=== PATIENT | female | born 1960 ===

== ENCOUNTER 2024-08-29 09:38 | Day surgery (SDC) | payer BC ==
[2024-08-29] MEDS ORDERED: Dexamethasone 4 MG/ML SDV IV ONE (09:39)
[2024-08-29] MEDS ORDERED: Midazolam 1 MG/ML 2 ML SDV IV ONE (09:39)
[2024-08-29] MEDS ORDERED: Sodium Chloride 0.9% 10 ML Syringe IV ONE (09:39)
[2024-08-29] MEDS ORDERED: Acetaminophen/Codeine 300-30 MG Tab PO PRN (09:45)
[2024-08-29] MEDS ORDERED: Ondansetron 4 MG/2 ML SDV IVPUSH PRN (09:45)
[2024-08-29] MEDS ORDERED: Acetaminophen 325 MG Tab PO PRN (09:45)
[2024-08-29] MEDS: Proparacaine 0.5% Ophth Soln 15 ML Bottle EYELF ONE ×2 (10:08→10:38)
[2024-08-29] MEDS: Moxifloxacin 0.5% Ophth Soln 3 ML Bottle EYELF ONE (10:09)
[2024-08-29] MEDS: Povidone-Iodine 5% Sterile Ophth Soln 30 ML Bottle EYELF ONE ×2 (10:09→10:38)
[2024-08-29] MEDS: Tropicamide 1% Ophth Soln 15 ML Bottle EYELF ONE (10:10)
[2024-08-29] MEDS: Phenylephrine 10% Ophth Soln 5 ML Bot EYELF ONE (10:11)
[2024-08-29] MEDS: Timolol Maleate 0.5% Ophth Soln 5 ML Bottle EYELF ONE (10:12)
[2024-08-29] MEDS: Cataract Ophth Solution EYELF ONE (10:12)
[2024-08-29] MEDS: Sodium Chloride 0.9% 10 ML Syringe FLUSH PRN (10:15)
[2024-08-29] MEDS: Dexamethasone/Neomycin/Polymyxin B Ophth Oint 3.5 GM Tube EYELF ONE (10:38)
[2024-08-29] MEDS: Diclofenac Sodium 0.1% Ophth Soln 5 ML Bottle EYELF ONE (10:38)
[2024-08-29] MEDS: Apraclonidine 0.5% Ophth Soln 5 ML Bot EYELF ONE (10:38)
[2024-08-29] MEDS: Lidocaine 1% 30 ML SDV ONE (10:41)
[2024-08-29] MEDS: VANCOmycin 500 MG SDV EYELF ONE (10:41)
== END 2024-08-29 11:23 | disposition home or self-care (01) ==
LOC: DL.SDS 09:38
PROVIDERS: ATTEND Ophthalmology
DX: H25.812 Combined forms of age-related cataract, left eye (principal); Z87.891 Personal history of nicotine dependence
CPT/HCPCS: 66984; A9270; J1100; J2250; J3370; J3490

== ENCOUNTER 2024-09-12 09:35 | Day surgery (SDC) | payer BC ==
[2024-09-12] MEDS ORDERED: Midazolam 1 MG/ML 2 ML SDV IV ONE (09:36)
[2024-09-12] MEDS ORDERED: Dexamethasone 4 MG/ML SDV IV ONE (09:36)
[2024-09-12] MEDS ORDERED: Sodium Chloride 0.9% 10 ML Syringe IV ONE (09:36)
[2024-09-12] MEDS ORDERED: Acetaminophen 325 MG Tab PO PRN (09:45)
[2024-09-12] MEDS ORDERED: Ondansetron 4 MG/2 ML SDV IVPUSH PRN (09:45)
[2024-09-12] MEDS ORDERED: Acetaminophen/Codeine 300-30 MG Tab PO PRN (09:45)
[2024-09-12] MEDS: Sodium Chloride 0.9% 10 ML Syringe FLUSH PRN (10:08)
[2024-09-12] MEDS: Proparacaine 0.5% Ophth Soln 15 ML Bottle EYERT ONE ×2 (10:13→10:47)
[2024-09-12] MEDS: Povidone-Iodine 5% Sterile Ophth Soln 30 ML Bottle EYERT ONE ×2 (10:14→10:47)
[2024-09-12] MEDS: Moxifloxacin 0.5% Ophth Soln 3 ML Bottle EYERT ONE (10:14)
[2024-09-12] MEDS: Tropicamide 1% Ophth Soln 15 ML Bottle EYERT ONE (10:15)
[2024-09-12] MEDS: Timolol Maleate 0.5% Ophth Soln 5 ML Bottle EYERT ONE (10:16)
[2024-09-12] MEDS: Phenylephrine 10% Ophth Soln 5 ML Bot EYERT ONE (10:16)
[2024-09-12] MEDS: Cataract Ophth Solution EYERT ONE (10:16)
[2024-09-12] MEDS: VANCOmycin 500 MG SDV EYERT ONE (10:54)
[2024-09-12] MEDS: Lidocaine 1% 30 ML SDV ONE (10:54)
[2024-09-12] MEDS: Diclofenac Sodium 0.1% Ophth Soln 5 ML Bottle EYERT ONE (10:57)
[2024-09-12] MEDS: Apraclonidine 0.5% Ophth Soln 5 ML Bot EYERT ONE (10:57)
[2024-09-12] MEDS: Dexamethasone/Neomycin/Polymyxin B Ophth Oint 3.5 GM Tube EYERT ONE (10:58)
== END 2024-09-12 11:25 | disposition home or self-care (01) ==
LOC: DL.SDS 09:35
PROVIDERS: ATTEND Ophthalmology
DX: H25.811 Combined forms of age-related cataract, right eye (principal); E66.9 Obesity, unspecified; Z87.891 Personal history of nicotine dependence; Z79.899 Other long term (current) drug therapy; Z68.34 Body mass index [BMI] 34.0-34.9, adult
CPT/HCPCS: A9270-GY; J1100; J2250; J3370; J3490; V2632